=== PATIENT | female | born 1990 | race Caucasian/White ===

== ENCOUNTER 2021-06-07 11:00 | Emergency (ER) | payer OTHER ==
[~2021-06-07] VITALS: Ht 157.5 cm; Wt 65.3 kg
[2021-06-07] MEDS ORDERED: PRENATAL + DHA1 EAC1 PO (11:09)
== END 2021-06-07 15:26 | disposition home or self-care (01) ==
LOC: ER 11:00
DX: O20.9 Hemorrhage in early pregnancy, unspecified (principal); Z3A.01 Less than 8 weeks gestation of pregnancy